=== PATIENT | male | born 1990 | race African-American/Black ===

== ENCOUNTER 2021-09-26 12:34 | Emergency (ER) | payer BC, SELFPAY ==
[2021-09-26 14:16] VITALS: BP 155/96; PULSE 115; RESP 16; TEMP 36.8; O2SAT 98; BMI 34.1
--- NOTE | 2021-09-26 17:29 | ED.GIBLEED ---
HPI - GI Bleed General Chief complaint: General Medical Stated complaint: Hemorrhoids Time Seen by Provider: 09/26/21 17:05 Source: patient Mode of arrival: ambulatory Limitations: no limitations History of Present Illness HPI Narrative: 31-year-old male presenting to the ED with complaints of rectal pain that started at the end of April and has been significantly worsening in the past 3 weeks. He believes that he has hemorrhoids. He will do a substance abuse prevention coordinator and his PCP made a referral and he has an appointment with a substance abuse prevention coordinator at [facility] on 10/03/2020 for surgical removal of his hemorrhoids although he can no longer take the pain therefore he came here for further evaluation treatment. He denies any recent rectal intercourse. The last time he had any rectal intercourse was in March of 2021. He denies any thoughts of foreign bodies. He denies any fevers. He denies any thoughts of STDs but would be agreeable to be tested for all STDs. MD complaint: other (Hemorrhoids) Onset (ago): month(s) Pain Consistency: constant Severity: severe Relieving factors: none Exacerbating factors: bowel movement and other (Or sitting) Context: hemorrhoids Associated symptoms: denies other symptoms Treatments Prior to Arrival: none Related Data Previous Rx's Medication Instructions Recorded cephalexin 500 mg capsule 500 mg PO Q6H 14 Days #56 cap 09/26/21 docusate sodium 100 mg capsule 100 mg PO BID PRN #14 cap 09/26/21 (Colace) doxycycline monohydrate 100 mg 100 mg PO BID 14 Days #28 cap 09/26/21 capsule ibuprofen 800 mg tablet 800 mg PO Q8H PRN #14 tab 09/26/21 oxycodone 5 mg tablet 5 mg PO Q6H PRN #14 tab 09/26/21 Allergies Allergy/AdvReac Type Severity Reaction Status Date / Time No Known Allergies Allergy Verified 09/26/21 14:18 Review of Systems Review of Systems: Constitutional : No Weight loss, No Fever, No Chills, No Night Sweats, No Fatigue, NoMalaise ENT/Mouth: No ear pain, No sore throat, No Difficulty swallowing Cardiovascular : No Chest Pain, No SOB, No Dyspnea on Exertion, No Orthopnea, NoEdema, No Palpitations Respiratory : No Cough, No Sputum, No Wheezing, No Dyspnea Gastrointestinal : + hemorrhoids/rectal pain, No Nausea, No Vomiting, No Diarrhea, No abdominal Pain, No Hematochezia, No Melena Genitourinary : No testicular pain, No irregular bleeding, No Dysuria, No Urinary Frequency, No Hematuria,No Urinary Incontinence, No Urgency, No Flank Pain Musculoskeletal : No joint pain, No Myalgias, No Joint Swelling Skin : No Skin Lesions, No rash Neuro : No Weakness, No Numbness, No Paresthesias, No Loss of Consciousness, NoDizziness, No Headache Psych : No Social Issues, Heme/Lymph: No Bruising, No Bleeding,No Lymphadenopathy Endocrine : No Polyuria, No Polydipsia, No Temperature Intolerance PATIENT DENIES ANY THOUGHTS OF STDS Yes all other systems are reviewed and are negative [facility] Past Medical History Attestation statement: The following information was validated with the patient. Medical History Hemorrhoid Social History Social History Advance Directives: No Advance Directives Information Provided: Yes Physical Exam Vital Signs: Vital Signs: Last Vital Signs Temp 98.3 F 09/26/21 14:16 Pulse 115 H 09/26/21 14:16 Resp 16 09/26/21 14:16 BP 155/96 H 09/26/21 14:16 Pulse Ox 98 09/26/21 14:16 BMI result Body Mass Index 34.1 vital signs have been reviewed as normal and appeared to be correct. Blood pressure 155/96. Heart rate 115. Respiration rate normal. Temperature normal. Oxygen saturation normal. Appearance: Alert. Oriented X3. No acute distress. Head: Normal external exam. Normocephalic. Atraumatic. Eyes: PERRLA. EOMI. Conjunctiva and sclera normal. Eyelids normal. ENT: Pharynx normal. Uvula midline. Moist mucous membranes. Neck: Normal inspection. Neck supple. FROM. No adenopathy. Thyroid Normal. No meningeal signs. No neck mass noted. CVS: Normal heart rate and rhythm. Heart sound normal. Pulses normal throughout. No murmurs/rales/gallops. Respiratory: No respiratory distress. Painless inspiration. Breath sounds normal. No wheezes/rales/rhonchi noted. Chest nontender. No accessory muscle usage noted or decreased air movement noted. Abdomen: Soft and nontender. Bowel sounds normal in all 4 quadrants. No distention noted. No organomegaly noted. No visible injury noted. Rectal exam: Patient noted to have multiple flat/raise irregular lesions with unusual pigmentation that are tender. No purulent/fluctuance/foreign bodies/bleeding/hemorrhoids noted. Possibly consistent with Condylomata acuminata. Back: Full range of motion noted. No rashes/lesion/induration/fluctuance or signs of infection noted. Skin: Skin warm and dry. Normal skin color. Normal skin turgor. No rashes/lesions/lacerations noted. Extremities:Extremities exhibit normal range of motion. Extremities nontender. Neuro: Oriented X 3. No motor deficit. No sensory deficit. Reflexes normal. Normal steady gait. No focal neuro deficits noted. Vascular: + radial pulses/+ 2 distal pedal pulses/+2 dorsalis pedis b/l. Normal cap refill. No cyanosis noted to upper extremity nails and lower extremity toes nails. Course Course Course Narrative: 17:30pm - 31-year-old male presenting to the ED with complaints of rectal pain that started at the end of April and has been significantly worsening in the past 3 weeks. He believes that he has hemorrhoids. He will do a substance abuse prevention coordinator and his PCP made a referral and he has an appointment with a substance abuse prevention coordinator at [facility] on 10/03/2020 for surgical removal of his hemorrhoids although he can no longer take the pain therefore he came here for further evaluation treatment. He denies any recent rectal intercourse. The last time he had any rectal intercourse was in March of 2021. He denies any thoughts of foreign bodies. He denies any fevers. He denies any thoughts of STDs but would be agreeable to be tested for all STDs. On exam Patient noted to have multiple flat/raise irregular lesions with unusual pigmentation that are tender. No purulent/fluctuance/foreign bodies/bleeding/hemorrhoids noted. Possibly consistent with Condylomata acuminata. Therefore I discussed this case with Dr. Basilio he is agreeing with me we believe that it may be Condylomata acuminata. Therefore Dr. Basilio instructed me to obtain labs including HIV/herpes/syphilis. And we will treat the patient with topical lidocaine. We will also treat the patient with 100 mg of doxycycline b.i.d. times 14 days for possible chlamydia infection verses superimposed infection. We will also give IM injection of Rocephin 500 mg for possible gonorrhea versus superimposed infection. Will also instruct the patient to follow up with the substance abuse prevention coordinator as scheduled. Therefore labs will be obtained at this time. MDM - GI Bleed Medical Records Attestation: I reviewed the patient's medical records. Lab Data Attestation: I reviewed the patient's lab results. Result diagrams: 09/26/21 18:11 09/26/21 18:11 Labs: Lab Results 09/26/21 09/26/21 Range/Units 18:11 18:11 WBC 8.4 (4.8-10.8) X10*3/uL RBC 4.24 L (4.60-5.80) X10*6/uL Hgb 12.5 L (14.0-18.0) g/dl Hct 38.8 L (42.0-52.0) % MCV 91.5 (80.0-98.0) fL MCH 29.5 (27.0-33.0) pg MCHC 32.2 (31.0-36.0) g/dl RDW 12.6 (11.0-16.0) % Plt Count 277 (160-400) X10*3/uL MPV 10.3 (9.4-12.4) fL Immature Gran % (Auto) 0.4 (0.0-0.4) % Neut % (Auto) 53.1 (45-73) % Lymph % (Auto) 38.4 (20-40) % [place] % (Auto) 6.2 (2-11) % Eos % (Auto) 1.3 (0-4) % Baso % (Auto) 0.6 (0-2) % Lymph # (Auto) 3.2 (1.2-4.9) X10*3/uL [place] # (Auto) 0.5 (0.1-1.2) X10*3/uL Eos # (Auto) 0.1 (0.0-0.4) X10*3/uL Baso # (Auto) 0.1 (0.0-0.2) X10*3/uL Abs Immat Gran (auto) 0.03 (0.00-0.03) X10*3/uL Absolute Neuts (auto) 4.5 (2.0-8.3) x10*3/uL Absolute Nucleated RBC 0.000 (0.0-0.012) X10*3/uL Nucleated RBC % (auto) 0.0 (0.0-0.2) /100WBC Urine Color YELLOW Urine Appearance CLEAR Urine pH 6.0 (5.0-8.0) Ur Specific [place] 1.025 (1.005-1.025) Urine Protein NEG (NEG-TRACE) MG/DL Urine Glucose (UA) NEG (NEG) MG/DL Urine Ketones 40 (NEG) MG/DL Urine Blood NEG (NEG) Urine Nitrite NEG (NEG) Ur Leukocyte Esterase NEG (NEG) Discharge Plan Discharge Clinical Impression: Condyloma acuminatum Patient Disposition: Home, Self-Care Instructions: Sexually Transmitted Diseases (ED), Genital Warts (ED) Additional Instructions: Avoid any sexual intercourse until you are seen by the substance abuse prevention coordinator. Return if any new or worsening symptoms. You have pending lab results you will only be contacted if they are positive. Prescriptions: New cephalexin 500 mg capsule 500 mg PO Q6H 14 Days Qty: 56 RF: 0 doxycycline monohydrate 100 mg capsule 100 mg PO BID 14 Days Qty: 28 RF: 0 docusate sodium [Colace] 100 mg capsule 100 mg PO BID PRN (Reason: Constipation) Qty: 14 RF: 0 ibuprofen 800 mg tablet 800 mg PO Q8H PRN (Reason: pain) Qty: 14 RF: 0 oxycodone 5 mg tablet 5 mg PO Q6H PRN (Reason: pain) Qty: 14 RF: 0 Referrals: Physician,Unknown J [Primary Care Provider] - 2 days (your pcp) Stand Alone Forms: Work/School Release Print Language: Telugu
[2021-09-26 18:16] LABS: MANUAL DIFF FLAG NO
[2021-09-26] MEDS: Lidocaine 4 % Cream KIT 1 APPL TOPICAL (18:16)
[2021-09-26 18:20] LABS: Appearance Urine CLEAR; Color Urine YELLOW; Glucose Urine UA NEG (NEG); Leukocyte Esterase Urine NEG (NEG); Nitrite Urine NEG (NEG); Specific Gravity - Urine 1.025 (1.005-1.025); Urine Blood NEG (NEG); Urine Ketones 40 MG/DL (NEG); Urine Protein NEG (NEG-TRACE)
[2021-09-26 18:21] LABS: Basophils Absolute Auto 0.1 X10*3/uL (0.0-0.2); Basophils Percent Auto 0.6 % (0-2); Eosinophils Absolute Auto 0.1 X10*3/uL (0.0-0.4); Eosinophils Percent Auto 1.3 % (0-4); Hematocrit 38.8 % (42.0-52.0); Hemoglobin 12.5 g/dl (14.0-18.0); Imm Gran Abs Auto 0.03 X10*3/uL (0.00-0.03); Imm Gran Pct Auto 0.4 % (0.0-0.4); Lymphocytes Absolute Auto 3.2 X10*3/uL (1.2-4.9); Lymphocytes Percent Auto 38.4 % (20-40); Mean Corpuscular HGB Conc 32.2 g/dl (31.0-36.0); Mean Corpuscular Hemoglobin 29.5 pg (27.0-33.0); Mean Corpuscular Volume 91.5 fL (80.0-98.0); Mean Platelet Volume 10.3 fL (9.4-12.4); Monocytes Absolute Auto 0.5 X10*3/uL (0.1-1.2); Monocytes Percent Auto 6.2 % (2-11); Neutrophils Absolute Auto 4.5 x10*3/uL (2.0-8.3); Neutrophils Percent Auto 53.1 % (45-73); Platelet Count 277 X10*3/uL (160-400); Red Blood Count 4.24 X10*6/uL (4.60-5.80); Red Cell Distribution Width 12.6 % (11.0-16.0); White Blood Count 8.4 X10*3/uL (4.8-10.8)
[2021-09-26 18:42] LABS: Alanine Aminotransferase 19 U/L (0-40); Albumin Level 4.5 g/dL (3.5-5.0); Alkaline Phosphatase 67 U/L (39-117); Anion Gap 13 (12-20); Aspartate Amino Transferase 23 U/L (5-37); Bilirubin Total 0.9 mg/dL (0.0-1.0); Blood Urea Nitrogen 12 mg/dL (9-16); Calcium 10.1 mg/dL (8.4-10.2); Carbon Dioxide 27 mmol/L (22-29); Chloride 106 mmol/L (96-108); Creatinine Clr Calc Pharmacy 133.5; Estimated Glomerular Filt Rate > 60; Glucose Random 90 mg/dL (60-115); Magnesium 2.1 mg/dL (1.6-2.6); Sodium 142 mmol/L (135-145); Total Protein 8.4 g/dL (6.5-8.0)
[2021-09-26 19:07] LABS: Syphilis Screen Reactive (Nonreactive)
[2021-09-26] MEDS: cefTRIAXone sodium 500 MG VIAL IM (19:12)
[2021-09-26] MEDS: Lidocaine HCl 1 % 20 ML VIAL INFILTRATI (19:13)
[2021-09-26 19:40] LABS: COVID-19 Test Negative (Negative)
[2021-09-26] MEDS: Penicillin G Benzathine 2,400,000 UNIT/4 ML SYRINGE 2400000 UNIT IM (20:04)
--- NOTE | 2021-09-26 20:05 | PC.NURSE ---
PEN G GIVEN RVL AND LVL 2ML INJECTED INTO EACH SITE.
[2021-09-26 20:42] VITALS: BP 149/79; PULSE 86; RESP 16; TEMP 36.8; O2SAT 97
[2021-09-27 03:53] LABS: CT PCR NOT DETECTED (Not Detect.); NG PCR NOT DETECTED (Not Detect.)
[2021-09-27 05:35] LABS: HIV AB/AG Nonreactive (Nonreactive); HIV Num 1 0.08 S/CO (0.00-0.99)
[2021-10-04 12:03] LABS: T.Pallidum Particle Agg Test Reactive (Nonreactive)
[2021-12-05 09:58] LABS: RPR Quantitative Reactive 1:64 (Nonreactive)
== END 2021-09-26 20:44 | disposition home or self-care (01) ==
PROVIDERS: Physician Assistant Medical; Emergency Provider Emergency Medicine Emergency Medical Services
DX: A63.0 Anogenital (venereal) warts (principal); A53.9 Syphilis, unspecified; Z20.822 Contact with and (suspected) exposure to COVID-19
CPT/HCPCS: 36415; 80053; 81003; 83735; 85025; 86592; 86780; 87255; 87389; 87491; 87591; 87635; 96372; 99283; 99284; J0561; J0696